=== PATIENT | female | born 1935 | race African-American/Black ===

== ENCOUNTER 2023-10-05 06:50 | Emergency (ER) | payer OTHER ==
[~2023-10-05] VITALS: Ht 167.6 cm; Wt 113.4 kg
[2023-10-05 06:59] VITALS: BP 121/65; PULSE 68; RESP 18; TEMP 97.5; O2SAT 95
[2023-10-05] MEDS ORDERED: NACL 0.9% 1,000 ML IV ONE (07:05)
[2023-10-05 07:55] VITALS: O2SAT 99
[2023-10-05 08:03] LABS: BASOPHILS % (AUTO) 0.5 % (0.0-2.0); EOSINOPHILS # (AUTO) 0.1 K/uL (0-0.4); EOSINOPHILS % (AUTO) 1.1 % (0.0-4.0); HEMATOCRIT 42.2 % (36-48); HEMOGLOBIN 13.4 g/dL (12.0-16.0); LYMPHOCYTES % (AUTO) 13.1 % (20.5-51.1); MEAN CORPUSCULAR HEMOGLOBIN 27 pg (27-31); MEAN CORPUSCULAR HGB CONC 32 g/dL (33-37); MEAN CORPUSCULAR VOLUME 85.4 fL (80-94); MONOCYTES # (AUTO) 0.5 K/uL (0.8-1.0); MONOCYTES % (AUTO) 6.1 % (1.7-9.3); NEUTROPHILS # (AUTO) 6.2 K/uL (1.8-7.7); NEUTROPHILS % (AUTO) 79.2 % (42.2-75.2); PLATELET COUNT (AUTO) 165 K/uL (140-450); RED BLOOD CELL COUNT(AUTO) 4.94 MIL/uL (4.20-5.40); RED CELL DISTRIBUTION WIDTH 13.8 % (11.6-13.7); WHITE BLOOD COUNT (AUTO) 7.8 K/uL (4.8-10.8)
[2023-10-05 08:16] LABS: ANION GAP 9.3 (8-16); CALCIUM 9.2 mg/dL (8.5-10.1); CARBON DIOXIDE 29.7 mmol/L (21-32); CHLORIDE 106 mmol/L (98-107); CREATININE 1.1 mg/dL (0.6-1.3); GLUCOSE 115 mg/dL (74-106); SODIUM SERUM 139 mmol/L (136-145); UREA NITROGEN, BLOOD 24 mg/dL (7-18)
[2023-10-05 08:25] LABS: LACTIC ACID 1.5 mmol/L (0.4-2.0)
[2023-10-05 08:35] LABS: ALANINE AMINOTRANSFERASE 30 U/L (12-78); ALBUMIN 3.2 g/dL (3.4-5.0); ALKALINE PHOSPHATASE 127 U/L (50-136); ASPARTATE AMINOTRANSFERASE 43 U/L (15-37); BILIRUBIN,DIRECT 0.1 mg/dL (0.0-0.3); CREATINE KINASE, TOTAL 305 U/L (26-192); TOTAL BILIRUBIN 0.7 mg/dL (0.0-1.0); TOTAL PROTEIN, SERUM 8.2 g/dL (6.4-8.2)
[2023-10-05 08:43] LABS: APPEARANCE,URINE CLEAR (CLEAR); BILIRUBIN,URINE NEGATIVE (NEGATIVE); BLOOD, URINE NEGATIVE (NEGATIVE); COLOR,URINE YELLOW (YELLOW); LEUKOCYTE ESTERASE ,URINE NEGATIVE (NEGATIVE); NITRITE, URINE NEGATIVE (NEGATIVE); PH,URINE 5.5 (5.0-9.0); PROTEIN,URINE NEGATIVE (NEGATIVE); UGLUCOSE NEGATIVE (NEGATIVE); UROBILINOGEN,URINE 0.2 EU/dL (0.2 - 1)
[2023-10-05 08:56] LABS: CKMB RELATIVE INDEX 0.3 (0.0-2.5); CREATINE KINASE MB 0.9 ng/mL (0-3.6)
[2023-10-05 09:12] LABS: INR 5.32 (0.8-1.2); PROTHROMBIN TIME 51.6 secs (10.8-13.4)
[2023-10-05 10:46] LABS: INR 0.99 (0.8-1.2); PROTHROMBIN TIME 10.4 secs (10.8-13.4)
[2023-10-05 11:15] VITALS: O2SAT 100
[2023-10-05] MEDS ORDERED: ONDA-188 SL ×2 (11:17→16:37)
[2023-10-05] MEDS ORDERED: VANC250C3 PO (11:17)
[2023-10-05 13:40] VITALS: BP 110/53; PULSE 68; RESP 14; TEMP 98.7; O2SAT 99
[2023-10-05] MEDS ORDERED: VANC125C12 PO (16:37)
== END 2023-10-05 13:40 ==
LOC: MED 06:50
DX: K52.9 Noninfective gastroenteritis and colitis, unspecified (principal); Z20.822 Contact with and (suspected) exposure to COVID-19; F03.90 Unspecified dementia, unspecified severity, without behavioral disturbance, psychotic disturbance, mood disturbance, and anxiety; Z79.899 Other long term (current) drug therapy; Z79.2 Long term (current) use of antibiotics
CPT/HCPCS: 36415; 71045; 74021; 80048; 80076; 81003; 82550; 82553; 83605; 83880; 84132; 84484; 85025; 85610; 85730; 87040; 87086; 87426; 93005; 96360; 99285; J7030